=== PATIENT | female | born 2000 | race Caucasian/White ===

== ENCOUNTER → 2022-07-19 | Outpatient (CLI) | payer BC, MEDICAID | LOC: M WHC 13:57 | PROVIDERS: ATTEND Advanced Practice Midwife | DX: O99.342 Other mental disorders complicating pregnancy, second trimester (principal) ==

== ENCOUNTER → 2022-08-06 | Outpatient (CLI) | payer BC, MEDICAID ==
[2022-08-06 16:24] LABS: HEMATOCRIT 43.2 % (36.0-47.0); HEMOGLOBIN 14.3 g/dl (12.0-15.5); MEAN CORPUSCULAR HEMOGLOBIN 30.4 pg (27.0-33.0); MEAN CORPUSCULAR HGB CONC 33.1 g/dl (32.0-36.5); MEAN CORPUSCULAR VOLUME 91.7 fl (80.0-96.0); PLATELET COUNT, AUTOMATED 269 10^3/uL (150-450); RED BLOOD COUNT 4.71 10^6/uL (4.00-5.40); WHITE BLOOD COUNT 15.3 10^3/uL (4.0-10.0)
[2022-08-06 17:42] LABS: GC DNA AMPLIFICATION NEGATIVE (NEGATIVE)
== END ==
LOC: M PLALAB 13:17
PROVIDERS: ATTEND Specialist
DX: Z34.02 Encounter for supervision of normal first pregnancy, second trimester (principal)

== ENCOUNTER 2022-08-16 19:18 | Outpatient (CLI) | payer BC, OTHER, MEDICAID ==
[~2022-08-16] VITALS: Ht 152.4 cm; Wt 91.0 kg
[2022-08-16] MEDS ORDERED: IRON27TA2 PO (19:36)
[2022-08-16] MEDS ORDERED: PREN1CHW6 PO (19:36)
[2022-08-16] MEDS ORDERED: FOLI5INJ2 SC (19:36)
[2022-08-16] MEDS ORDERED: TUMS500C PO (19:36)
[2022-08-16 19:38] VITALS: BP 130/67
[2022-08-16] MEDS ORDERED: HOME MED LIST COMPLETE! XX SCH (19:40)
[2022-08-16 20:42] VITALS: BP 128/68
== END 2022-08-16 22:00 | disposition home or self-care (01) ==
LOC: M LDO 19:18
PROVIDERS: ATTEND Advanced Practice Midwife
DX: O26.893 Other specified pregnancy related conditions, third trimester (principal); R25.2 Cramp and spasm; O36.8139 Decreased fetal movements, third trimester, other fetus; O99.343 Other mental disorders complicating pregnancy, third trimester; F60.3 Borderline personality disorder; F32.9 Major depressive disorder, single episode, unspecified; Z3A.29 29 weeks gestation of pregnancy
CPT/HCPCS: 59025; 76815; 81000; 81002; 81015; G0463

== ENCOUNTER → 2022-08-17 | Outpatient (CLI) | payer BC, OTHER, MEDICAID ==
[~2022-08-17] MED LIST: FOLI5INJ2 SC; IRON27TA2 PO; PREN1CHW6 PO; TUMS500C PO
== END ==
LOC: M WHC 15:25
PROVIDERS: ATTEND Advanced Practice Midwife
DX: Z34.82 Encounter for supervision of other normal pregnancy, second trimester (principal)

== ENCOUNTER → 2022-09-28 | Outpatient (REF) | payer OTHER, MEDICAID ==
[2022-09-28 16:57] LABS: APPEARANCE, URINE MANUAL CLEAR (CLEAR); COLOR, URINE MANUAL ORANGE (YELLOW); SPECIFIC GRAVITY,URINE MANUAL 1.013 (1.002-1.035)
[2022-09-28 16:58] LABS: BILIRUBIN, URINE MANUAL OBSCURED (NEGATIVE); BLOOD URINE MANUAL OBSCURED (NEGATIVE); GLUCOSE, URINE (UA) MANUAL OBSCURED mg/dL (NEGATIVE); KETONE, URINE MANUAL OBSCURED mg/dL (NEGATIVE); LEUKOCYTE ESTERASE, URINE MAN OBSCURED (NEGATIVE); NITRITE, URINE MANUAL OBSCURED (NEGATIVE); PH,URINE MAN OBSCURED UNITS (5.0 - 7.0); PROTEIN, URINE MANUAL OBSCURED mg/dL (NEGATIVE); UROBILINOGEN, URINE MANUAL OBSCURED mg/dl (NORMAL)
[2022-09-28 18:17] LABS: BACTERIA, URINE LARGE AMOUNT; RBC, URINE 30-40 /hpf (0-3); SQUAMOUS EPITHELIAL CELL URINE LARGE AMOUNT /hpf (SMALL AMT)
[2022-09-28 18:18] LABS: HYALINE CAST, URINE NONE SEEN /lpf (0-1)
== END ==
LOC: M LAB REF 16:31
PROVIDERS: ATTEND Physician Assistant Medical
DX: N39.0 Urinary tract infection, site not specified (principal)

== ENCOUNTER 2022-10-06 13:54 | Inpatient (IN) | payer BC, OTHER, MEDICAID ==
[~2022-10-06] VITALS: Ht 152.4 cm; Wt 99.6 kg
[2022-10-06] VITALS (7 sets, daily range): BP systolic 132–159; BP diastolic 70–101
[2022-10-06] MEDS ORDERED: HOME MED LIST COMPLETE! XX SCH (14:20)
[2022-10-06] MEDS ORDERED: PENICILLIN G POTASSIUM 5 MU IV 5 MU in D5W MINI-BAG PLUS 100 ML IV STA (15:06)
[2022-10-06] MEDS ORDERED: LIDOCAINE 1% MDV 20ML VIAL INFIL PRN (15:10)
[2022-10-06] MEDS ORDERED: OXYTOCIN DRIP 30 UNITS in IV 1 EA IV PRN ×4 (15:10)
[2022-10-06] MEDS ORDERED: TRANEXAMIC ACID INJection 1,000 MG in NS 100 ML IV PRN (15:10)
[2022-10-06] MEDS ORDERED: METHYLERGONOVINE MALEATE 0.2 MG/ML VIAL (J2210) IM PRN (15:10)
[2022-10-06] MEDS ORDERED: CARBOPROST TROMETHAMINE 250 MCG/ML AMP IM PRN (15:10)
[2022-10-06] MEDS ORDERED: OXYTOCIN INJ 10UNITS/ML 1ML VIAL IM PRN (15:10)
[2022-10-06] MEDS ORDERED: miSOPROStol 50MCG 1/2 TABLET PO SCH (16:00)
[2022-10-06 16:11] LABS: HEMATOCRIT 41.8 % (36.0-47.0); HEMOGLOBIN 14.4 g/dl (12.0-15.5); MEAN CORPUSCULAR HEMOGLOBIN 29.9 pg (27.0-33.0); MEAN CORPUSCULAR HGB CONC 34.4 g/dl (32.0-36.5); MEAN CORPUSCULAR VOLUME 86.9 fl (80.0-96.0); PLATELET COUNT, AUTOMATED 272 10^3/uL (150-450); RED BLOOD COUNT 4.81 10^6/uL (4.00-5.40); WHITE BLOOD COUNT 16.3 10^3/uL (4.0-10.0)
[2022-10-06] MEDS: PEN G POT 3,000,000 UNIT/50 ML 3,000,000 UNIT in IV 1 EA IV SCH (21:03)
[2022-10-07] VITALS (41 sets, daily range): BP systolic 89–166; BP diastolic 48–92
[2022-10-07] MEDS: PEN G POT 3,000,000 UNIT/50 ML 3,000,000 UNIT in IV 1 EA IV SCH ×3 (00:35→08:37)
[2022-10-07] MEDS ORDERED: EPIDURAL/PCA KEYS XX PRN (01:50)
[2022-10-07] MEDS ORDERED: ONDANSETRON 4MG 2ML VIAL IV PRN ×2 (01:50→14:30)
[2022-10-07] MEDS ORDERED: FENTANYL/ROPIVACAINE/NACL BAG 100 ML EPIDURAL SCH (01:50)
[2022-10-07] MEDS ORDERED: diphenhydrAMINE 50MG/ML VIAL IV PRN ×2 (01:50→14:30)
[2022-10-07] MEDS ORDERED: LR 500 ML IV PRN (01:50)
[2022-10-07] MEDS ORDERED: NALOXONE INJ 0.4MG/1ML VIAL IV PRN ×3 (01:50→14:30)
[2022-10-07] MEDS: ePHEDrine SULFATE 25 MG/5 ML(5MG/ML) SYRINGE IVP PRN ×2 (02:57→02:59)
[2022-10-07] MEDS ORDERED: OXYTOCIN DRIP 30 UNITS in IV 1 EA IV SCH ×2 (03:20→14:05)
[2022-10-07] MEDS: LR 1,000 ML IV SCH ×5 (04:05→22:05)
[2022-10-07] MEDS: PRENATAL VITAMINS CHEWABLE TABLET PO SCH (09:00)
[2022-10-07] MEDS ORDERED: ceFAZolin SOD 3 GM IV Place Holder IV ONE (12:15)
[2022-10-07] MEDS ORDERED: AZITHROMYCIN INJ 500 MG, VIAL MATE ADAPTER 1 EACH in NS 250 ML IV ONE (12:15)
[2022-10-07] MEDS ORDERED: BICITRA 30ML SOLN UDC PO ONE (12:15)
[2022-10-07] MEDS ORDERED: LIDOCAINE 2% W/EPINEPHRINE 20ML VIAL **PRES FREE As Ordered ONE (12:15)
[2022-10-07] MEDS ORDERED: LIDOCAINE PRES-FREE 2% 10ML AMP As Ordered ONE (12:15)
[2022-10-07] MEDS ORDERED: MORPHINE PRES-FREE INJ 10 MG/10 ML VIAL As Ordered ONE (12:16)
[2022-10-07] MEDS ORDERED: ceFAZolin SOD 2 GM in IV 1 EA IV ONE (12:30)
[2022-10-07] MEDS ORDERED: ceFAZolin SOD 1 GM in D5W MINI-BAG PLUS 50 ML IV ONE (12:30)
[2022-10-07] MEDS ORDERED: OXYTOCIN INJ 10UNITS/ML 1ML VIAL As Ordered ONE (13:18)
[2022-10-07] MEDS ORDERED: ONDANSETRON 4MG 2ML VIAL As Ordered ONE (13:18)
[2022-10-07] MEDS ORDERED: KETOROLAC 60MG 2ML VIAL As Ordered ONE (13:18)
[2022-10-07 13:21] LABS: CORD GAS ABE V -7.5; CORD GAS HCO3 V 23.2 MEQ/L; CORD GAS O2 SAT V 42.7 %; CORD GAS PCO2 V 67.3 mmHg; CORD GAS PH V 7.155 UNITS; CORD GAS PO2 V 21.3 mmHg; CORD GAS SBC V 17.1 MEQ/L; CORD GAS TCO2 V 25.2 MEQ/L
[2022-10-07 13:24] LABS: CORD GAS ABE A -6.7; CORD GAS HCO3 A 24.7 MEQ/L; CORD GAS O2 SAT A 39.2 %; CORD GAS PCO2 A 73.8 mmHg; CORD GAS PH A 7.143 UNITS; CORD GAS PO2 A 21.2 mmHg; CORD GAS SBC A 17.6 MEQ/L
[2022-10-07] MEDS ORDERED: ACETAMINOPHEN 1000MG 100ML IV BAG As Ordered ONE (13:31)
[2022-10-07] MEDS ORDERED: OXYTOCIN 30 UNITS IN 0.9% NaCl 500ML IV BAG (J2590) As Ordered ONE (14:04)
[2022-10-07] MEDS ORDERED: MORPHINE 4 MG/ML 1ML VIAL IV PRN (14:05)
[2022-10-07] MEDS ORDERED: SIMETHICONE 80MG CHEW TAB PO PRN (14:05)
[2022-10-07] MEDS ORDERED: RHOGAM 300 MCG (1500 IU) INJ (J2790) IM SCH (14:05)
[2022-10-07] MEDS ORDERED: ACETAMINOPHEN 500 MG TAB PO PRN (14:05)
[2022-10-07] MEDS ORDERED: METOCLOPRAMIDE INJ 10MG/2ML VIAL IV PRN (14:30)
[2022-10-07] MEDS ORDERED: fentaNYL 100 MCG/2 ML INJECTION IV PRN (14:30)
[2022-10-07] MEDS ORDERED: **NOTE PATIENT COMMENT** MISC XX SCH (14:30)
[2022-10-07] MEDS: SLF 3 ML SYR IV SCH ×2 (14:30→22:30)
[2022-10-07] MEDS ORDERED: oxyCODONE 5MG TAB PO PRN (14:30)
[2022-10-07] MEDS ORDERED: FOLI400T13 PO (14:52)
[2022-10-07] MEDS ORDERED: IRON65TA2 PO (14:52)
[2022-10-07] MEDS ORDERED: ACET-907 PO (14:52)
[2022-10-07] MEDS ORDERED: CYCL5TAB PO (14:52)
[2022-10-07] MEDS ORDERED: TUMS500C PO (14:52)
[2022-10-07] MEDS ORDERED: PRENTAB9 PO (14:52)
[2022-10-07] MEDS ORDERED: COLA100C5 PO (16:28)
[2022-10-07] MEDS ORDERED: IBUP80TA PO (16:28)
[2022-10-07] MEDS ORDERED: PERCOCET PO (16:28)
[2022-10-07] MEDS: KETOROLAC 30 MG/ML 1ML VIAL IV SCH (20:00)
[2022-10-07] MEDS: DOCUSATE SODIUM 100MG CAPSULE PO SCH (21:00)
[2022-10-08 02:00] VITALS: BP 120/61
[2022-10-08] MEDS: KETOROLAC 30 MG/ML 1ML VIAL IV SCH ×2 (02:00→09:29)
[2022-10-08 06:00] VITALS: BP 121/61
[2022-10-08] MEDS: SLF 3 ML SYR IV SCH (06:30)
[2022-10-08 07:22] LABS: HEMATOCRIT 37.3 % (36.0-47.0); MEAN CORPUSCULAR HGB CONC 33.2 g/dl (32.0-36.5); MEAN CORPUSCULAR VOLUME 90.1 fl (80.0-96.0); PLATELET COUNT, AUTOMATED 205 10^3/uL (150-450); RED BLOOD COUNT 4.14 10^6/uL (4.00-5.40); WHITE BLOOD COUNT 17.2 10^3/uL (4.0-10.0)
[2022-10-08 07:28] LABS: HEMOGLOBIN 12.4 g/dl (12.0-15.5)
[2022-10-08] MEDS: DOCUSATE SODIUM 100MG CAPSULE PO SCH ×2 (09:30→20:28)
[2022-10-08] MEDS: PRENATAL VITAMINS CHEWABLE TABLET PO SCH (09:30)
[2022-10-08 10:00] VITALS: BP 121/67
[2022-10-08 14:00] VITALS: BP 139/78
[2022-10-08] MEDS: IBUPROFEN 800 MG TAB PO SCH (16:08)
[2022-10-08] MEDS: PERCOCET 5MG/325MG TAB PO PRN ×2 (17:03→20:29)
[2022-10-08 18:00] VITALS: BP 140/71
[2022-10-08 22:00] VITALS: BP 140/82
[2022-10-09] MEDS: PERCOCET 5MG/325MG TAB PO PRN ×3 (00:14→14:21)
[2022-10-09] MEDS: IBUPROFEN 800 MG TAB PO SCH ×2 (00:14→08:38)
[2022-10-09 02:00] VITALS: BP 132/88
[2022-10-09 06:00] VITALS: BP 128/80
[2022-10-09] MEDS: DOCUSATE SODIUM 100MG CAPSULE PO SCH (08:38)
[2022-10-09] MEDS: PRENATAL VITAMINS CHEWABLE TABLET PO SCH (08:38)
[2022-10-09] MEDS ORDERED: MEASLES,MUMPS,RUBELLA VACCINE INJ (MMR-II) (90707) SC.IMMUN ONE (09:00)
[2022-10-09] MEDS ORDERED: NORE0.353 PO (11:50)
== END 2022-10-09 15:35 | disposition home or self-care (01) | DRG 540 ==
LOC: M LDO 13:54 → M LDI 14:57 → M OBS 10-07 15:38
PROVIDERS: ADMIT Advanced Practice Midwife; ATTEND Obstetrics & Gynecology
PROC: 3E0P7GC Introduction of Other Therapeutic Substance into Female Reproductive, Via Natural or Artificial Opening (ICD-10-PCS; 2022-10-06)
PROC: 10D00Z1 Extraction of Products of Conception, Low, Open Approach (ICD-10-PCS; principal; 2022-10-07 12:40)
DX: O42.013 Preterm premature rupture of membranes, onset of labor within 24 hours of rupture, third trimester (principal); E66.9 Obesity, unspecified; O99.214 Obesity complicating childbirth; O64.0XX0 Obstructed labor due to incomplete rotation of fetal head, not applicable or unspecified; Z3A.36 36 weeks gestation of pregnancy; F31.9 Bipolar disorder, unspecified; F60.3 Borderline personality disorder; F43.10 Post-traumatic stress disorder, unspecified; O99.344 Other mental disorders complicating childbirth; O76 Abnormality in fetal heart rate and rhythm complicating labor and delivery; Z37.0 Single live birth

== ENCOUNTER → 2022-11-19 | Outpatient (CLI) | payer BC, OTHER, MEDICAID ==
[~2022-11-19] MED LIST changes: +ACET-907 PO; +COLA100C5 PO; +CYCL5TAB PO; +FOLI400T13 PO; +IBUP80TA PO; +IRON65TA2 PO; +NORE0.353 PO; +PERCOCET PO; +PRENTAB9 PO
[2022-11-19 15:51] LABS: FREE T4 0.83 NG/DL (0.89-1.76)
[2022-11-19 15:52] LABS: THYROID STIMULATING HORMONE 2.331 uIU/ML (0.55-4.78)
== END ==
LOC: M PLALAB 13:46
PROVIDERS: ATTEND Physician Assistant
DX: E03.2 Hypothyroidism due to medicaments and other exogenous substances (principal)

== ENCOUNTER → 2023-03-11 | Outpatient (CLI) | payer BC, OTHER, MEDICAID ==
[2023-03-11 14:22] LABS: BASO # 0.1 10^3/uL (0.0-0.2); BASO % 0.7 % (0.0-1.0); EOS # 0.2 10^3/uL (0.0-0.5); EOS % 2.4 % (0.0-3.0); HEMOGLOBIN 14.7 g/dl (12.0-15.5); LYMPH # 2.7 10^3/uL (1.5-5.0); LYMPH % 29.8 % (24.0-44.0); MEAN CORPUSCULAR HEMOGLOBIN 29.3 pg (27.0-33.0); MEAN CORPUSCULAR HGB CONC 33.4 g/dl (32.0-36.5); MEAN CORPUSCULAR VOLUME 87.8 fl (80.0-96.0); MONO # 0.8 10^3/uL (0.0-0.8); MONO % 8.4 % (2.0-8.0); NEUTROPHILS # 5.4 10^3/uL (1.5-8.5); NEUTROPHILS % 58.3 % (36.0-66.0); PLATELET COUNT, AUTOMATED 355 10^3/uL (150-450); RED BLOOD COUNT 5.01 10^6/uL (4.00-5.40); WHITE BLOOD COUNT 9.2 10^3/uL (4.0-10.0)
[2023-03-11 14:40] LABS: ALBUMIN 4.1 G/DL (3.2-5.2); ALKALINE PHOSPHATASE 127 U/L (46-116); ALT/SGPT 37 U/L (7.0-40); AST/SGOT 25 U/L (<34); BILIRUBIN,TOTAL 0.7 MG/DL (0.3-1.2); BLOOD UREA NITROGEN 7 MG/DL (9-23); CALCIUM LEVEL 9.3 MG/DL (8.5-10.1); CARBON DIOXIDE LEVEL 29 MMOL/L (20-31); CHLORIDE LEVEL 104 MMOL/L (98-107); CREATININE FOR GFR 0.59 MG/DL (0.55-1.30); GLOMERULAR FILTRATION RATE > 60.0 (>60); GLUCOSE, FASTING 73 MG/DL (60-100); POTASSIUM SERUM 4.4 MMOL/L (3.5-5.1); SODIUM LEVEL 137 MMOL/L (136-145); TOTAL PROTEIN 7.1 G/DL (5.7-8.2)
[2023-03-11 14:42] LABS: FERRITIN 47.7 NG/ML (7.3-270.7); FREE T4 0.88 NG/DL (0.89-1.76); THYROID STIMULATING HORMONE 1.786 uIU/ML (0.55-4.78)
[2023-03-11 14:49] LABS: ERYTHROCYTE SEDIMENTATION RATE 13 mm/hr (0-20)
== END ==
LOC: M PLALAB 11:26
PROVIDERS: ATTEND Physician Assistant
DX: R42 Dizziness and giddiness (principal)

== ENCOUNTER 2023-06-14 09:10 | Emergency (ER) | payer BC, OTHER, MEDICAID ==
[~2023-06-14] VITALS: Ht 152.4 cm; Wt 76.7 kg
[2023-06-14] MEDS ORDERED: ACETAMINOPHEN 500 MG TAB PO ONE (12:05)
[2023-06-14] MEDS ORDERED: NS 1,000 ML IV ONE (12:05)
[2023-06-14] MEDS ORDERED: IBUPROFEN 800 MG TAB PO ONE (12:05)
[2023-06-14 12:36] LABS: BASO % 0.3 % (0.0-1.0); EOS % 0.2 % (0.0-3.0); HEMATOCRIT 43.2 % (36.0-47.0); HEMOGLOBIN 15.3 g/dl (12.0-15.5); LYMPH # 0.7 10^3/uL (1.5-5.0); LYMPH % 6.7 % (24.0-44.0); MEAN CORPUSCULAR HEMOGLOBIN 30.3 pg (27.0-33.0); MEAN CORPUSCULAR HGB CONC 35.4 g/dl (32.0-36.5); MEAN CORPUSCULAR VOLUME 85.5 fl (80.0-96.0); MONO % 9.3 % (2.0-8.0); NEUTROPHILS # 9.1 10^3/uL (1.5-8.5); NEUTROPHILS % 82.7 % (36.0-66.0); PLATELET COUNT, AUTOMATED 263 10^3/uL (150-450); RED BLOOD COUNT 5.05 10^6/uL (4.00-5.40)
[2023-06-14 13:47] VITALS: BP 115/56; TEMP 100; O2SAT 98
== END 2023-06-14 14:01 | disposition home or self-care (01) ==
LOC: M ED 09:10
DX: J06.9 Acute upper respiratory infection, unspecified (principal)

== ENCOUNTER 2023-10-23 22:22 | Emergency (ER) | payer MEDICARE, BC, OTHER ==
[~2023-10-23] VITALS: Ht 152.4 cm; Wt 76.5 kg
[2023-10-24 01:07] LABS: BASO # 0.1 10^3/uL (0.0-0.2); BASO % 0.3 % (0.0-1.0); EOS # 0.2 10^3/uL (0.0-0.5); EOS % 1.5 % (0.0-3.0); HEMATOCRIT 40.9 % (36.0-47.0); HEMOGLOBIN 14.1 g/dl (12.0-15.5); LYMPH # 4.4 10^3/uL (1.5-5.0); LYMPH % 29.1 % (24.0-44.0); MEAN CORPUSCULAR HEMOGLOBIN 30.1 pg (27.0-33.0); MEAN CORPUSCULAR HGB CONC 34.5 g/dl (32.0-36.5); MEAN CORPUSCULAR VOLUME 87.2 fl (80.0-96.0); MONO # 0.9 10^3/uL (0.0-0.8); MONO % 6.3 % (2.0-8.0); NEUTROPHILS # 9.3 10^3/uL (1.5-8.5); PLATELET COUNT, AUTOMATED 310 10^3/uL (150-450); RED BLOOD COUNT 4.69 10^6/uL (4.00-5.40)
[2023-10-24 01:17] LABS: LIPASE 31 U/L (12-53)
[2023-10-24 01:20] LABS: ALBUMIN 3.7 G/DL (3.2-5.2); ALKALINE PHOSPHATASE 137 U/L (46-116); ALT/SGPT 74 U/L (7.0-40); AST/SGOT 26 U/L (<34); BILIRUBIN,DIRECT < 0.1 MG/DL (<0.4); BILIRUBIN,TOTAL 0.3 MG/DL (0.3-1.2); BLOOD UREA NITROGEN 10 MG/DL (9-23); CALCIUM LEVEL 9.4 MG/DL (8.5-10.1); CARBON DIOXIDE LEVEL 22 MMOL/L (20-31); CHLORIDE LEVEL 106 MMOL/L (98-107); CREATININE FOR GFR 0.41 MG/DL (0.55-1.30); GLOMERULAR FILTRATION RATE > 60.0 (>60); GLUCOSE, FASTING 88 MG/DL (60-100); POTASSIUM SERUM 4.3 MMOL/L (3.5-5.1); SODIUM LEVEL 138 MMOL/L (136-145); TOTAL PROTEIN 6.9 G/DL (5.7-8.2)
[2023-10-24] MEDS ORDERED: METOCLOPRAMIDE INJ 10MG/2ML VIAL IV ONE (02:55)
[2023-10-24] MEDS ORDERED: ACETAMINOPHEN *IV* 1,000 MG in IV 1 EA IV ONE (02:55)
[2023-10-24] MEDS ORDERED: diphenhydrAMINE 50MG/ML VIAL IV ONE (02:55)
[2023-10-24] MEDS ORDERED: NS 1,000 ML IV ONE (02:55)
[2023-10-24 03:05] LABS: CHLAMYDIA DNA AMPLIFICATION POSITIVE (NEGATIVE); GC DNA AMPLIFICATION NEGATIVE (NEGATIVE)
[2023-10-24 04:08] VITALS: BP 124/62; TEMP 98.7; O2SAT 98
[2023-10-24] MEDS ORDERED: AZITHROMYCIN 250MG TABLET PO ONE (05:10)
== END 2023-10-24 05:46 | disposition home or self-care (01) ==
LOC: M ED 22:22
DX: O98.311 Other infections with a predominantly sexual mode of transmission complicating pregnancy, first trimester (principal)
CPT/HCPCS: 76801; 80048; 80076; 81001; 83690; 84702; 85025; 86850; 86900; 86901; 87086; 87661; 87810; 87850; 93041; 93976; 96365; 96366; 96375; 99284; J0131; J1200; J2765

== ENCOUNTER → 2023-11-17 | Outpatient (CLI) | payer MEDICARE, BC, OTHER, MEDICAID ==
[2023-11-17 13:42] LABS: HEMATOCRIT 42.6 % (36.0-47.0); HEMOGLOBIN 14.5 g/dl (12.0-15.5); MEAN CORPUSCULAR VOLUME 88.2 fl (80.0-96.0); PLATELET COUNT, AUTOMATED 302 10^3/uL (150-450); RED BLOOD COUNT 4.83 10^6/uL (4.00-5.40); WHITE BLOOD COUNT 12.1 10^3/uL (4.0-10.0)
[2023-11-17 14:14] LABS: THYROXINE (T4) 11.2 UG/DL (4.5-10.9)
[2023-11-17 14:15] LABS: THYROID STIMULATING HORMONE 2.267 uIU/ML (0.55-4.78)
[2023-11-17 14:16] LABS: FREE THYROXINE INDEX 2.1 % (1.3-4.8); T UPTAKE 18.9 % (22.5-37.0)
[2023-11-17 14:47] LABS: HIV 1&2 SCREEN NEGATIVE (NEGATIVE)
[2023-11-17 14:54] LABS: HEPATITIS C VIRUS ABY INDEX < 0.02 INDEX (<0.8)
[2023-11-17 17:07] LABS: CHLAMYDIA DNA AMPLIFICATION NEGATIVE (NEGATIVE); GC DNA AMPLIFICATION NEGATIVE (NEGATIVE)
== END ==
LOC: M PLALAB 11:39
PROVIDERS: ATTEND Specialist
DX: Z34.81 Encounter for supervision of other normal pregnancy, first trimester (principal); Z79.899 Other long term (current) drug therapy; Z11.3 Encounter for screening for infections with a predominantly sexual mode of transmission; Z11.59 Encounter for screening for other viral diseases; Z72.89 Other problems related to lifestyle

== ENCOUNTER → 2023-12-08 | Outpatient (REF) | payer BC, MEDICAID ==
[2023-12-08 17:16] LABS: CHLAMYDIA DNA AMPLIFICATION NEGATIVE (NEGATIVE); GC DNA AMPLIFICATION NEGATIVE (NEGATIVE)
== END ==
LOC: M PLALAB 09:22
PROVIDERS: ATTEND Advanced Practice Midwife
DX: Z34.81 Encounter for supervision of other normal pregnancy, first trimester (principal)

== ENCOUNTER → 2024-01-16 | Outpatient (CLI) | payer MEDICARE, BC, MEDICAID | LOC: M RAD 11:34 | PROVIDERS: ATTEND Advanced Practice Midwife | DX: Z34.81 Encounter for supervision of other normal pregnancy, first trimester (principal) ==

== ENCOUNTER 2024-02-01 11:48 | Outpatient (CLI) | payer MEDICARE, BC, MEDICAID ==
[~2024-02-01] VITALS: Ht 152.4 cm; Wt 80.1 kg
[2024-02-01 12:08] VITALS: BP 125/70
[2024-02-01 13:17] LABS: AMORPHOUS SEDIMENT SMALL (NEGATIVE); APPEARANCE, URINE CLOUDY (CLEAR); BACTERIA, URINE AUTO NEGATIVE (NEGATIVE); BILIRUBIN, URINE AUTO NEGATIVE (NEGATIVE); BLOOD, URINE BLOOD NEGATIVE (NEGATIVE); COLOR, URINE YELLOW (YELLOW); GLUCOSE, URINE (UA) AUTO NEGATIVE (NEGATIVE); KETONE, URINE AUTO NEGATIVE (NEGATIVE); LEUKOCYTE ESTERASE, URINE AUTO NEGATIVE (NEGATIVE); NITRITE, URINE AUTO NEGATIVE (NEGATIVE); PROTEIN, URINE AUTO NEGATIVE (NEGATIVE); RBC, URINE AUTO 1 /HPF (0-3); SPECIFIC GRAVITY URINE AUTO 1.016 (1.002-1.035); SQUAMOUS EPITHELIAL CELL UR AU 5 /HPF (0-6); UROBILINOGEN, URINE AUTO 0.2 mg/dL (0.0-2.0); WBC, URINE AUTO 0 /HPF (0-3)
[2024-02-01 14:32] LABS: Trichomonas vaginalis (AMP) NOT DETECTED (NEGATIVE)
[2024-02-01 14:55] LABS: GC DNA AMPLIFICATION NEGATIVE (NEGATIVE)
== END 2024-02-01 14:25 | disposition home or self-care (01) ==
LOC: M LDO 11:48
PROVIDERS: ATTEND Advanced Practice Midwife
DX: O26.892 Other specified pregnancy related conditions, second trimester (principal); R11.0 Nausea; Z3A.21 21 weeks gestation of pregnancy
CPT/HCPCS: 59025; 81001; 87661; 87810; 87850; G0463

== ENCOUNTER 2024-02-07 14:34 | Outpatient (CLI) | payer BC, MEDICAID ==
[~2024-02-07] VITALS: Ht 152.4 cm; Wt 80.6 kg
[2024-02-07 14:59] VITALS: BP 130/72
[2024-02-07 15:16] VITALS: BP 112/56
[2024-02-07 15:34] VITALS: BP 130/76
[2024-02-07 15:44] VITALS: BP 128/72
[2024-02-07 15:57] LABS: HEMATOCRIT 38.4 % (36.0-47.0); HEMOGLOBIN 13.5 g/dl (12.0-15.5); MEAN CORPUSCULAR HEMOGLOBIN 30.9 pg (27.0-33.0); MEAN CORPUSCULAR HGB CONC 35.2 g/dl (32.0-36.5); MEAN CORPUSCULAR VOLUME 87.9 fl (80.0-96.0); PLATELET COUNT, AUTOMATED 253 10^3/uL (150-450); RED BLOOD COUNT 4.37 10^6/uL (4.00-5.40); WHITE BLOOD COUNT 13.6 10^3/uL (4.0-10.0)
[2024-02-07 15:59] VITALS: BP 122/69
[2024-02-07 16:47] LABS: AMORPHOUS SEDIMENT MODERATE (NEGATIVE); APPEARANCE, URINE HAZY (CLEAR); BACTERIA, URINE AUTO 1+ (NEGATIVE); BILIRUBIN, URINE AUTO NEGATIVE (NEGATIVE); BLOOD, URINE BLOOD NEGATIVE (NEGATIVE); COLOR, URINE YELLOW (YELLOW); GLUCOSE, URINE (UA) AUTO NEGATIVE (NEGATIVE); KETONE, URINE AUTO NEGATIVE (NEGATIVE); LEUKOCYTE ESTERASE, URINE AUTO NEGATIVE (NEGATIVE); MUCUS, URINE SMALL (NEGATIVE); NITRITE, URINE AUTO NEGATIVE (NEGATIVE); PROTEIN, URINE AUTO NEGATIVE (NEGATIVE); RBC, URINE AUTO 1 /HPF (0-3); SPECIFIC GRAVITY URINE AUTO 1.019 (1.002-1.035); SQUAMOUS EPITHELIAL CELL UR AU 3 /HPF (0-6); UROBILINOGEN, URINE AUTO 0.2 mg/dL (0.0-2.0); WBC, URINE AUTO 3 /HPF (0-3)
[2024-02-07 17:25] VITALS: BP 100/48
== END 2024-02-07 18:10 | disposition home or self-care (01) ==
LOC: M LDO 14:34
PROVIDERS: ATTEND Obstetrics & Gynecology
DX: O26.892 Other specified pregnancy related conditions, second trimester (principal); O34.219 Maternal care for unspecified type scar from previous cesarean delivery; R51.9 Headache, unspecified; R42 Dizziness and giddiness; Z3A.22 22 weeks gestation of pregnancy
CPT/HCPCS: 36415; 59025; 81001; 85027; G0463

== ENCOUNTER → 2024-03-27 | Outpatient (CLI) | payer BC, MEDICAID ==
[2024-03-27 17:45] LABS: BASO # 0.1 10^3/uL (0.0-0.2); BASO % 0.5 % (0.0-1.0); EOS # 0.1 10^3/uL (0.0-0.5); HEMOGLOBIN 13.4 g/dl (12.0-15.5); LYMPH # 2.9 10^3/uL (1.5-5.0); LYMPH % 20.1 % (24.0-44.0); MEAN CORPUSCULAR HGB CONC 34.4 g/dl (32.0-36.5); MEAN CORPUSCULAR VOLUME 87.4 fl (80.0-96.0); MONO # 0.9 10^3/uL (0.0-0.8); MONO % 6.2 % (2.0-8.0); NEUTROPHILS # 9.9 10^3/uL (1.5-8.5); NEUTROPHILS % 69.1 % (36.0-66.0); PLATELET COUNT, AUTOMATED 262 10^3/uL (150-450); RED BLOOD COUNT 4.46 10^6/uL (4.00-5.40); WHITE BLOOD COUNT 14.3 10^3/uL (4.0-10.0)
== END ==
LOC: M PLALAB 15:56
PROVIDERS: ATTEND Physician Assistant
DX: Z77.120 Contact with and (suspected) exposure to mold (toxic) (principal); R21 Rash and other nonspecific skin eruption

== ENCOUNTER → 2024-06-06 | Outpatient (CLI) | payer MEDICARE, BC, MEDICAID ==
[2024-06-06 16:57] LABS: Trichomonas vaginalis (AMP) NOT DETECTED (NEGATIVE)
[2024-06-06 17:21] LABS: GC DNA AMPLIFICATION NEGATIVE (NEGATIVE)
[2024-06-10 03:07] LABS: HSV SOURCE Serum; HSV-1 DNA Not Detected (Not Detected); HSV-2 DNA Not Detected (Not Detected)
== END ==
LOC: M PLALAB 12:17
PROVIDERS: ATTEND Physician Assistant Medical
DX: R30.0 Dysuria (principal); Z20.2 Contact with and (suspected) exposure to infections with a predominantly sexual mode of transmission; Z11.3 Encounter for screening for infections with a predominantly sexual mode of transmission; Z72.89 Other problems related to lifestyle; N34.1 Nonspecific urethritis